=== PATIENT | female | born 1960 | race Caucasian/White ===

== ENCOUNTER 2022-07-19 05:31 | Day surgery (SDC) | payer OTHER ==
[2022-07-17 16:19] VITALS: BMI 21.4
[2022-07-19 10:13] VITALS: RESP 20; TEMP 97.5
[2022-07-19 11:11] VITALS: BP 110/70; PULSE 50
== END 2022-07-19 11:20 | disposition home or self-care (01) ==
LOC: JASU-ENDO 05:31
PROVIDERS: ATTEND Internal Medicine Gastroenterology
PROC: 0DJD8ZZ Inspection of Lower Intestinal Tract, Via Natural or Artificial Opening Endoscopic (ICD-10-PCS; principal; 2022-07-19 09:30)
DX: Z12.11 Encounter for screening for malignant neoplasm of colon (principal); K64.8 Other hemorrhoids